=== PATIENT | female | born 1990 | race Caucasian/White ===

== ENCOUNTER 2018-06-27 19:58 | Emergency (ER) | payer OTHER ==
[~2018-06-27] VITALS: Ht 160 cm; Wt 62.6 kg
[2018-06-27] MEDS ORDERED: PENICILLIN VK500 MG PO (20:35)
== END 2018-06-27 20:16 | disposition home or self-care (01) ==
LOC: ED 19:58
DX: K08.89 Other specified disorders of teeth and supporting structures (principal); F17.200 Nicotine dependence, unspecified, uncomplicated

== ENCOUNTER 2023-01-03 18:57 | Emergency (ER) | payer OTHER ==
[~2023-01-03] VITALS: Ht 160 cm; Wt 52.2 kg
[~2023-01-03 18:57] MED LIST: PENICILLIN VK500 MG PO
[2023-01-03] MEDS ORDERED: AMOX-CLAV 875-1 EACH PO (19:20)
== END 2023-01-03 19:35 | disposition home or self-care (01) ==
LOC: ED 18:57
DX: K08.89 Other specified disorders of teeth and supporting structures (principal)